=== PATIENT | female | born 1970 | race Hispanic/Latino ===

== ENCOUNTER 2017-07-08 05:17 | Emergency (ER) | payer OTHER ==
[~2017-07-08] VITALS: Ht 162.6 cm; Wt 101.3 kg
[~2017-07-08 05:17] MED LIST: ATARAX,VISTARIL50 MG PO; CLEOCIN300 MG PO; FARXIGA10 MG PO; GLIMEPIRIDE4 MG PO; KOMBIGLYZE XR1 EACH PO; LANTUS 10100 UNITS/ SC; LOSARTAN POTASS50 MG PO; METFORMIN HCL1000 MG PO; NORCO 5/3251 TABLET PO; PEPCID20 MG PO; PREDNISONE50 MG PO; ULTRAM50 MG PO; ZANTAC150 MG PO
[2017-07-08 06:38] LABS: APPEARANCE SL.HAZY ((CLEAR)); BILIRUBIN NEGATIVE; BLOOD SMALL; COLOR YELLOW ((YELLOW)); GLUCOSE (STRIP) NEGATIVE; KETONES 5; LEUKOCYTES NEGATIVE; NITRITE NEGATIVE; PROTEIN (STRIP) 30; SPECIFIC GRAVITY 1.018 (1.000-1.030); UROBILINOGEN 0.2 MG/DL (0.2-1.0)
[2017-07-08 06:42] LABS: BACTERIA 1+ /HPF; EPITHELIAL CELLS 2+ /HPF; MUCUS 1+ /LPF; UCUL ADDED? NO; WHITE BLOOD CELLS 0-5 /HPF (0-5)
[2017-07-08 06:49] LABS: HEMATOCRIT 38.9 % (36.0-46.0); HEMOGLOBIN 13.5 G/DL (11.9-15.5); MCH 31.4 PG (29.0-34.0); MCHC 34.7 G/DL (30.0-36.0); MCV 90.5 FL (83-99); PLATELET COUNT 393 K/uL (156-360); RBC DIS.WIDTH-CV 11.9 % (11.8-14.6); RBC DIS.WIDTH-SD 38.8 % (39-53); WHITE BLOOD COUNT 18.5 K/uL (4.1-10.2)
[2017-07-08 08:37] LABS: ALBUMIN 3.6 g/dL (3.2-4.8); CHLORIDE 105 mEq/L (99-109); POTASSIUM 3.9 mEq/L (3.7-5.4); SODIUM 136 mEq/L (136-147)
[2017-07-08 08:39] LABS: GLUCOSE 198 mg/dL (70-99); TOTAL PROTEIN 6.5 g/dL (6.4-8.3)
[2017-07-08 08:41] LABS: TOTAL BILIRUBIN 0.5 mg/dL (0.0-1.0)
[2017-07-08 08:43] LABS: ALKALINE PHOSPHATASE 74 IU/L (3-129); CREATININE 0.6 mg/dL (0.6-1.3); GFR ESTIMATE (CALCULATED) > 59 mL/min/
[2017-07-08 08:44] LABS: UREA NITROGEN (BUN) 14 mg/dL (9-23)
[2017-07-08 08:45] LABS: AST (GOT) 17 IU/L (2-34)
[2017-07-08 08:46] LABS: ALT (GPT) 23 IU/L (3-49)
[2017-07-08 08:51] LABS: QUANTITATIVE HCG < 4.0 MIU/ML
[2017-07-08] MEDS ORDERED: BENTYL10 MG PO (09:55)
[2017-07-08] MEDS ORDERED: ZOFRAN ODT4 MG PO (09:55)
[2017-07-08 10:25] VITALS: BP 111/74
== END 2017-07-08 10:25 | disposition home or self-care (01) ==
LOC: EME 05:17
PROVIDERS: Nurse Practitioner Family
DX: K42.9 Umbilical hernia without obstruction or gangrene (principal); R11.2 Nausea with vomiting, unspecified; I10 Essential (primary) hypertension; E11.9 Type 2 diabetes mellitus without complications; Z79.4 Long term (current) use of insulin; Z88.0 Allergy status to penicillin; Z88.2 Allergy status to sulfonamides; Z88.6 Allergy status to analgesic agent
CPT/HCPCS: 74176; 80053; 81003; 84702; 85027; 99281; 99285; J1200; J1885; J2405; J7030

== ENCOUNTER 2017-08-05 11:18 | Inpatient (IN) | payer OTHER ==
[~2017-08-05] VITALS: Ht 162.6 cm; Wt 100.4 kg
[~2017-08-05 11:18] MED LIST changes: +BENTYL10 MG PO; +ZOFRAN ODT4 MG PO
[2017-08-05 11:47] LABS: HEMATOCRIT 40.7 % (36.0-46.0); MCH 31.3 PG (29.0-34.0); MCHC 34.4 G/DL (30.0-36.0); MCV 91.1 FL (83-99); PLATELET COUNT 380 K/uL (156-360); RBC DIS.WIDTH-SD 40.2 % (39-53); RED BLOOD COUNT 4.47 M/uL (3.80-5.20); WHITE BLOOD COUNT 22.3 K/uL (4.1-10.2)
[2017-08-05 11:56] LABS: ALBUMIN 4.2 g/dL (3.2-4.8)
[2017-08-05 11:57] LABS: CHLORIDE 100 mEq/L (99-109); POTASSIUM 3.9 mEq/L (3.7-5.4); SODIUM 137 mEq/L (136-147)
[2017-08-05 11:59] LABS: GLUCOSE 127 mg/dL (70-99); TOTAL PROTEIN 8.2 g/dL (6.4-8.3)
[2017-08-05 12:01] LABS: TOTAL BILIRUBIN 0.7 mg/dL (0.0-1.0)
[2017-08-05 12:02] LABS: ALKALINE PHOSPHATASE 89 IU/L (3-129)
[2017-08-05 12:03] LABS: CREATININE 0.7 mg/dL (0.6-1.3); GFR ESTIMATE (CALCULATED) > 59 mL/min/
[2017-08-05 12:04] LABS: AST (GOT) 23 IU/L (2-34); UREA NITROGEN (BUN) 14 mg/dL (9-23)
[2017-08-05 12:06] LABS: ALT (GPT) 31 IU/L (3-49)
[2017-08-05 12:11] LABS: QUANTITATIVE HCG < 4.0 MIU/ML
[2017-08-05 13:33] LABS: APPEARANCE CLEAR ((CLEAR)); BILIRUBIN NEGATIVE; BLOOD NEGATIVE; COLOR YELLOW ((YELLOW)); GLUCOSE (STRIP) NEGATIVE; KETONES 20; LEUKOCYTES NEGATIVE; NITRITE NEGATIVE; PROTEIN (STRIP) NEGATIVE; UCUL ADDED? NO; UROBILINOGEN 0.2 MG/DL (0.2-1.0)
[2017-08-05 13:48] LABS: SPECIFIC GRAVITY 1.094 (1.000-1.030)
[2017-08-05] MEDS ORDERED: GLUCOPHAGE500 MG PO (13:58)
[2017-08-05] MEDS ORDERED: PRAVACHOL10 MG PO (13:59)
[2017-08-05] MEDS ORDERED: NOVOLOG PE100 UNITS/ SC (13:59)
[2017-08-05] MEDS ORDERED: BASAGLAR K100 UNIT/1 SC (14:00)
[2017-08-05] MEDS ORDERED: VITAMIN C500 M1 PO (14:00)
[2017-08-05] MEDS ORDERED: B-121000 MC2 PO (14:00)
[2017-08-05] MEDS ORDERED: CINNAMON500 MG PO (14:01)
[2017-08-05] MEDS ORDERED: VITAMIN B-6100 MG PO (14:01)
[2017-08-05] MEDS ORDERED: VITAMIN E400 UNIT PO (14:01)
[2017-08-05] MEDS ORDERED: TYLENOL EXTRA500 MG PO (14:02)
[2017-08-05] MEDS ORDERED: MAGNESIUM250 MG PO (14:02)
[2017-08-05 16:14] LABS: ABS NEUTROPHIL COUNT 18.1; EOSINOPHIL ABS CT 0.4; EOSINOPHILS 1.7 % (0-5.0)
[2017-08-05 20:30] VITALS: BP 139/77
[2017-08-05 23:52] VITALS: BP 109/70
[2017-08-06 04:12] VITALS: BP 121/61
[2017-08-06 07:15] LABS: CHLORIDE 105 MEQ/L (99-109); CREATININE 0.5 MG/DL (0.6-1.3); GFR ESTIMATE (CALCULATED) > 59 mL/min/; GLUCOSE 103 mg/dL (70-99); POTASSIUM 3.7 MEQ/L (3.7-5.4); SODIUM 139 MEQ/L (136-147); UREA NITROGEN (BUN) 10 mg/dL (9-23)
[2017-08-06 07:34] LABS: HEMATOCRIT 33.2 % (36.0-46.0); MCH 30.9 PG (29.0-34.0); MCHC 33.1 G/DL (30.0-36.0); MCV 93.3 FL (83-99); RBC DIS.WIDTH-CV 12.1 % (11.8-14.6); RBC DIS.WIDTH-SD 42.4 % (39-53); WHITE BLOOD COUNT 11.7 K/uL (4.1-10.2)
[2017-08-06 07:49] LABS: RED BLOOD COUNT 3.56 M/uL (3.80-5.20)
[2017-08-06 08:00] VITALS: BP 130/71
[2017-08-06 08:00] LABS: PLAT.SUFFICIENCY ADEQUATE; PLATELET COUNT 271 K/uL (156-360)
[2017-08-06 11:24] VITALS: BP 138/71
[2017-08-06 16:12] VITALS: BP 131/71
[2017-08-06 20:07] VITALS: BP 150/71
[2017-08-06 23:48] VITALS: BP 155/66
[2017-08-07 07:45] VITALS: BP 138/66
[2017-08-07 08:02] LABS: HEMOGLOBIN 12.1 G/DL (11.9-15.5); MCH 30.7 PG (29.0-34.0); MCHC 32.7 G/DL (30.0-36.0); MCV 93.9 FL (83-99); PLATELET COUNT 309 K/uL (156-360); RBC DIS.WIDTH-CV 11.9 % (11.8-14.6); RBC DIS.WIDTH-SD 41.6 % (39-53); RED BLOOD COUNT 3.94 M/uL (3.80-5.20); WHITE BLOOD COUNT 13.4 K/uL (4.1-10.2)
[2017-08-07 08:40] LABS: CHLORIDE 104 MEQ/L (99-109); CREATININE 0.5 MG/DL (0.6-1.3); GFR ESTIMATE (CALCULATED) > 59 mL/min/; GLUCOSE 191 mg/dL (70-99); POTASSIUM 4.4 MEQ/L (3.7-5.4); SODIUM 137 MEQ/L (136-147); UREA NITROGEN (BUN) 14 mg/dL (9-23)
[2017-08-07 11:16] VITALS: BP 145/69
[2017-08-07 16:06] VITALS: BP 162/76
[2017-08-07 23:32] VITALS: BP 134/65
[2017-08-08 07:12] VITALS: BP 157/71
[2017-08-08 10:11] LABS: HEMATOCRIT 35.2 % (36.0-46.0); HEMOGLOBIN 11.8 G/DL (11.9-15.5); MCH 31.4 PG (29.0-34.0); MCHC 33.5 G/DL (30.0-36.0); MCV 93.6 FL (83-99); PLATELET COUNT 315 K/uL (156-360); RBC DIS.WIDTH-CV 12.1 % (11.8-14.6); RED BLOOD COUNT 3.76 M/uL (3.80-5.20); WHITE BLOOD COUNT 8.1 K/uL (4.1-10.2)
[2017-08-08 10:35] LABS: CHLORIDE 102 MEQ/L (99-109); CREATININE 0.5 MG/DL (0.6-1.3); GFR ESTIMATE (CALCULATED) > 59 mL/min/; GLUCOSE 155 mg/dL (70-99); POTASSIUM 3.9 MEQ/L (3.7-5.4); SODIUM 136 MEQ/L (136-147); UREA NITROGEN (BUN) 9 mg/dL (9-23)
[2017-08-08 15:29] VITALS: BP 142/75
[2017-08-08 21:00] VITALS: BP 125/85
[2017-08-09 00:01] VITALS: BP 145/75
[2017-08-09 04:00] VITALS: BP 123/75
[2017-08-09 07:10] VITALS: BP 115/75
[2017-08-09 07:46] VITALS: BP 150/69
== END 2017-08-09 12:10 | disposition home or self-care (01) | DRG 390 ==
LOC: EME 11:18 → EDOF 14:52 → 2EASTP 14:52 → ENRESERV 14:54 → 2EASTP 19:13 → ENPENDDIS 08-06 → 2EASTP 08-09 12:10
PROVIDERS: Hospitalist; Internal Medicine
DX: K56.609 Unspecified intestinal obstruction, unspecified as to partial versus complete obstruction (principal); E86.0 Dehydration; D72.829 Elevated white blood cell count, unspecified; E11.9 Type 2 diabetes mellitus without complications; I10 Essential (primary) hypertension; K42.9 Umbilical hernia without obstruction or gangrene; E66.9 Obesity, unspecified; Z68.37 Body mass index [BMI] 37.0-37.9, adult
CPT/HCPCS: 74019; 74177; 80048; 80053; 81003; 82948; 84702; 85007; 85027; 99281; 99285; J1650; J2270; J2405; J2930; J7030

== ENCOUNTER 2017-09-08 03:41 | Inpatient (IN) | payer OTHER ==
[~2017-09-08] VITALS: Ht 162.6 cm; Wt 103.0 kg
[~2017-09-08 03:41] MED LIST changes: +B-121000 MC2 PO; +BASAGLAR K100 UNIT/1 SC; +CINNAMON500 MG PO; +GLUCOPHAGE500 MG PO; +MAGNESIUM250 MG PO; +NOVOLOG PE100 UNITS/ SC; +PRAVACHOL10 MG PO; +TYLENOL EXTRA500 MG PO; +VITAMIN B-6100 MG PO; +VITAMIN C500 M1 PO; +VITAMIN E400 UNIT PO
[2017-09-08 04:39] LABS: HEMATOCRIT 41.1 % (36.0-46.0); HEMOGLOBIN 14.2 G/DL (11.9-15.5); MCH 31.2 PG (29.0-34.0); MCHC 34.5 G/DL (30.0-36.0); MCV 90.3 FL (83-99); PLATELET COUNT 383 K/uL (156-360); RBC DIS.WIDTH-CV 11.8 % (11.8-14.6); RBC DIS.WIDTH-SD 38.9 % (39-53); RED BLOOD COUNT 4.55 M/uL (3.80-5.20); WHITE BLOOD COUNT 22.8 K/uL (4.1-10.2)
[2017-09-08 04:49] LABS: ALBUMIN 4.1 g/dL (3.2-4.8); CHLORIDE 103 mEq/L (99-109); POTASSIUM 4.4 mEq/L (3.7-5.4); SODIUM 137 mEq/L (136-147)
[2017-09-08 04:51] LABS: GLUCOSE 202 mg/dL (70-99); TOTAL PROTEIN 8.2 g/dL (6.4-8.3)
[2017-09-08 04:53] LABS: TOTAL BILIRUBIN 0.7 mg/dL (0.0-1.0)
[2017-09-08 04:55] LABS: ALKALINE PHOSPHATASE 97 IU/L (3-129); CREATININE 0.7 mg/dL (0.6-1.3); GFR ESTIMATE (CALCULATED) > 59 mL/min/
[2017-09-08 04:56] LABS: UREA NITROGEN (BUN) 16 mg/dL (9-23)
[2017-09-08 04:57] LABS: AST (GOT) 17 IU/L (2-34)
[2017-09-08 04:58] LABS: ALT (GPT) 30 IU/L (3-49)
[2017-09-08 05:05] LABS: QUANTITATIVE HCG < 4.0 MIU/ML
[2017-09-08 05:10] LABS: APPEARANCE CLOUDY ((CLEAR)); BILIRUBIN NEGATIVE; BLOOD NEGATIVE; COLOR AMBER ((YELLOW)); GLUCOSE (STRIP) NEGATIVE; KETONES 5; LEUKOCYTES TRACE; NITRITE NEGATIVE; PROTEIN (STRIP) 100; SPECIFIC GRAVITY 1.038 (1.000-1.030); UROBILINOGEN 0.2 MG/DL (0.2-1.0)
[2017-09-08 05:49] LABS: BACTERIA 3+ /HPF; EPITHELIAL CELLS 2+ /HPF; MUCUS 1+ /LPF; RED BLOOD CELLS NONE SEEN /HPF (0-5); UCUL ADDED? YES; WHITE BLOOD CELLS 0-5 /HPF (0-5)
[2017-09-08 05:50] LABS: AMORPHOUS URATES CRYSTALS 2+; CALCIUM OXALATE CRYSTALS 2+ /HPF
[2017-09-08] MEDS ORDERED: NOVOLOG 10100 UNITS/ SC (08:14)
[2017-09-08] MEDS ORDERED: BENTYL10 MG PO (08:21)
[2017-09-08 10:33] VITALS: BP 112/61
[2017-09-08 11:12] LABS: HEMOGLOBIN A1c (GLYCOHEMOGLOB) 6.3 % (Below 5.7)
[2017-09-08 16:04] VITALS: BP 120/62
[2017-09-08 20:33] VITALS: BP 117/66
[2017-09-08 23:49] VITALS: BP 127/64
[2017-09-09 03:33] VITALS: BP 110/59
[2017-09-09 06:02] LABS: HEMATOCRIT 36.6 % (36.0-46.0); HEMOGLOBIN 12.3 G/DL (11.9-15.5); MCH 30.9 PG (29.0-34.0); MCHC 33.6 G/DL (30.0-36.0); PLATELET COUNT 349 K/uL (156-360); RBC DIS.WIDTH-CV 11.9 % (11.8-14.6); RBC DIS.WIDTH-SD 40.8 % (39-53); RED BLOOD COUNT 3.98 M/uL (3.80-5.20); WHITE BLOOD COUNT 21.1 K/uL (4.1-10.2)
[2017-09-09 06:15] LABS: ALBUMIN 3.4 G/DL (3.2-4.8); ALKALINE PHOSPHATASE 70 IU/L (3-129); ALT (GPT) 18 IU/L (3-49); AST (GOT) 11 IU/L (2-34); CHLORIDE 107 MEQ/L (99-109); CREATININE 0.6 MG/DL (0.6-1.3); GFR ESTIMATE (CALCULATED) > 59 mL/min/; GLUCOSE 186 mg/dL (70-99); POTASSIUM 4.5 MEQ/L (3.7-5.4); SODIUM 138 MEQ/L (136-147); TOTAL BILIRUBIN 0.6 MG/DL (0.0-1.0); TOTAL PROTEIN 6.3 G/DL (6.4-8.3); UREA NITROGEN (BUN) 13 mg/dL (9-23)
[2017-09-09 06:23] LABS: INTER. NORMALIZED RATIO 1.2
[2017-09-09 07:20] VITALS: BP 129/62
[2017-09-09 11:41] VITALS: BP 121/68
[2017-09-09 15:46] VITALS: BP 123/70
[2017-09-09 23:36] VITALS: BP 119/59
[2017-09-10 06:52] LABS: HEMATOCRIT 33.6 % (36.0-46.0); HEMOGLOBIN 11.1 G/DL (11.9-15.5); MCH 30.5 PG (29.0-34.0); MCV 92.3 FL (83-99); PLATELET COUNT 320 K/uL (156-360); RBC DIS.WIDTH-CV 12.1 % (11.8-14.6); RBC DIS.WIDTH-SD 41.1 % (39-53); RED BLOOD COUNT 3.64 M/uL (3.80-5.20); WHITE BLOOD COUNT 14.3 K/uL (4.1-10.2)
[2017-09-10 07:43] VITALS: BP 136/75
[2017-09-10 15:00] VITALS: BP 135/66
[2017-09-10 23:11] VITALS: BP 149/71
[2017-09-11 06:17] LABS: HEMATOCRIT 32.5 % (36.0-46.0); HEMOGLOBIN 10.7 G/DL (11.9-15.5); MCH 30.1 PG (29.0-34.0); MCHC 32.9 G/DL (30.0-36.0); MCV 91.3 FL (83-99); PLATELET COUNT 348 K/uL (156-360); RBC DIS.WIDTH-CV 11.7 % (11.8-14.6); RBC DIS.WIDTH-SD 39.7 % (39-53); RED BLOOD COUNT 3.56 M/uL (3.80-5.20)
[2017-09-11 09:05] VITALS: BP 154/68
[2017-09-12 00:01] VITALS: BP 120/65
[2017-09-12 06:51] LABS: HEMATOCRIT 33.7 % (36.0-46.0); HEMOGLOBIN 10.9 G/DL (11.9-15.5); MCH 29.9 PG (29.0-34.0); MCHC 32.3 G/DL (30.0-36.0); MCV 92.3 FL (83-99); PLATELET COUNT 334 K/uL (156-360); RBC DIS.WIDTH-CV 11.9 % (11.8-14.6); RBC DIS.WIDTH-SD 40.4 % (39-53); RED BLOOD COUNT 3.65 M/uL (3.80-5.20); WHITE BLOOD COUNT 11.4 K/uL (4.1-10.2)
[2017-09-12 07:07] LABS: C-REACTIVE PROTEIN 10.8 MG/L (0-10); CHLORIDE 105 MEQ/L (99-109); CREATININE 0.6 MG/DL (0.6-1.3); GFR ESTIMATE (CALCULATED) > 59 mL/min/; GLUCOSE 145 mg/dL (70-99); POTASSIUM 4.1 MEQ/L (3.7-5.4); SODIUM 139 MEQ/L (136-147); UREA NITROGEN (BUN) 11 mg/dL (9-23)
[2017-09-12 07:52] VITALS: BP 131/66
[2017-09-12 11:10] VITALS: BP 133/77
[2017-09-12 15:30] VITALS: BP 141/80
[2017-09-12 23:53] VITALS: BP 106/59
[2017-09-13 08:00] VITALS: BP 127/63
[2017-09-13] MEDS ORDERED: PREDNISONE5 MG PO (10:40)
[2017-09-13] MEDS ORDERED: DELZICOL400 M1 PO (10:40)
[2017-09-13 14:05] LABS: Neutrophil Cytoplasmic Aby Negative (Negative)
== END 2017-09-13 12:42 | disposition home or self-care (01) | DRG 386 ==
LOC: EME 03:41 → EDOF 07:33 → 5EAST 07:33 → ENRESERV 07:39 → 5EAST 10:08
PROVIDERS: Internal Medicine; Specialist
PROC: 0DBB8ZX Excision of Ileum, Via Natural or Artificial Opening Endoscopic, Diagnostic (ICD-10-PCS; principal; 2017-09-11)
DX: K50.00 Crohn's disease of small intestine without complications (principal); N30.00 Acute cystitis without hematuria; I10 Essential (primary) hypertension; E11.9 Type 2 diabetes mellitus without complications; E78.5 Hyperlipidemia, unspecified; Z79.4 Long term (current) use of insulin; Z82.3 Family history of stroke; Z82.49 Family history of ischemic heart disease and other diseases of the circulatory system; Z83.3 Family history of diabetes mellitus
CPT/HCPCS: 71045; 74019; 74177; 80048; 80053; 81003; 82948; 83036; 83605; 84702; 85027; 85610; 86021 90; 86140; 86671 90; 87040; 87086; 88305; 99281; 99285; C9113; J1650; J1815; J1956; J2270; J2405; J2930; J7030; J7512; S0030

== ENCOUNTER 2017-09-25 13:04 | Emergency (ER) | payer OTHER ==
[~2017-09-25] VITALS: Ht 162.6 cm; Wt 99.0 kg
[~2017-09-25 13:04] MED LIST changes: +DELZICOL400 M1 PO; +NOVOLOG 10100 UNITS/ SC; +PREDNISONE5 MG PO
[2017-09-25 13:50] LABS: HEMOGLOBIN 12.6 G/DL (11.9-15.5); MCH 31.3 PG (29.0-34.0); MCHC 34.1 G/DL (30.0-36.0); MCV 91.8 FL (83-99); PLATELET COUNT 370 K/uL (156-360); RBC DIS.WIDTH-CV 12.5 % (11.8-14.6); RBC DIS.WIDTH-SD 41.4 % (39-53); RED BLOOD COUNT 4.03 M/uL (3.80-5.20); WHITE BLOOD COUNT 13.8 K/uL (4.1-10.2)
[2017-09-25 13:58] LABS: ALBUMIN 3.9 g/dL (3.2-4.8)
[2017-09-25 13:59] LABS: CHLORIDE 101 mEq/L (99-109); POTASSIUM 3.9 mEq/L (3.7-5.4); SODIUM 141 mEq/L (136-147)
[2017-09-25 14:01] LABS: GLUCOSE 164 mg/dL (70-99); TOTAL PROTEIN 7.2 g/dL (6.4-8.3)
[2017-09-25 14:03] LABS: TOTAL BILIRUBIN 0.5 mg/dL (0.0-1.0)
[2017-09-25 14:04] LABS: ALKALINE PHOSPHATASE 83 IU/L (3-129)
[2017-09-25 14:05] LABS: CREATININE 0.7 mg/dL (0.6-1.3); GFR ESTIMATE (CALCULATED) > 59 mL/min/
[2017-09-25 14:06] LABS: AST (GOT) 19 IU/L (2-34); UREA NITROGEN (BUN) 12 mg/dL (9-23)
[2017-09-25 14:07] LABS: ALT (GPT) 33 IU/L (3-49)
[2017-09-25 14:13] LABS: QUANTITATIVE HCG < 4.0 MIU/ML
[2017-09-25 16:23] LABS: APPEARANCE CLEAR ((CLEAR)); BILIRUBIN NEGATIVE; BLOOD NEGATIVE; COLOR STRAW ((YELLOW)); GLUCOSE (STRIP) NEGATIVE; KETONES NEGATIVE; LEUKOCYTES NEGATIVE; NITRITE NEGATIVE; PROTEIN (STRIP) NEGATIVE; SPECIFIC GRAVITY 1.008 (1.000-1.030); UCUL ADDED? NO; UROBILINOGEN 0.2 MG/DL (0.2-1.0)
[2017-09-25] MEDS ORDERED: KEFLEX500 MG PO (16:45)
[2017-09-25] MEDS ORDERED: MIRALAX255 GM PO (16:45)
[2017-09-25 17:02] VITALS: BP 162/81
== END 2017-09-25 17:02 | disposition home or self-care (01) ==
LOC: EME 13:04
DX: K59.00 Constipation, unspecified (principal); L03.311 Cellulitis of abdominal wall; E11.9 Type 2 diabetes mellitus without complications; I10 Essential (primary) hypertension; K50.90 Crohn's disease, unspecified, without complications; Z79.4 Long term (current) use of insulin; Z87.19 Personal history of other diseases of the digestive system; Z88.6 Allergy status to analgesic agent; Z88.2 Allergy status to sulfonamides; Z88.0 Allergy status to penicillin
CPT/HCPCS: 74022; 80053; 81003; 84702; 85027; 99281; 99284

== ENCOUNTER 2017-10-05 06:31 | Emergency (ER) | payer OTHER ==
[~2017-10-05] VITALS: Ht 162.6 cm; Wt 99.7 kg
[~2017-10-05 06:31] MED LIST changes: +KEFLEX500 MG PO; +MIRALAX255 GM PO
[2017-10-05 07:10] LABS: APPEARANCE SL.HAZY ((CLEAR)); BILIRUBIN NEGATIVE; BLOOD NEGATIVE; COLOR YELLOW ((YELLOW)); GLUCOSE (STRIP) >=500; KETONES 20; LEUKOCYTES NEGATIVE; NITRITE NEGATIVE; PROTEIN (STRIP) 30; SPECIFIC GRAVITY 1.024 (1.000-1.030); UROBILINOGEN 0.2 MG/DL (0.2-1.0)
[2017-10-05 07:16] LABS: HEMATOCRIT 40.3 % (36.0-46.0); HEMOGLOBIN 13.9 G/DL (11.9-15.5); MCH 31.4 PG (29.0-34.0); MCHC 34.5 G/DL (30.0-36.0); MCV 91.2 FL (83-99); PLATELET COUNT 311 K/uL (156-360); RBC DIS.WIDTH-CV 12.6 % (11.8-14.6); RBC DIS.WIDTH-SD 42.1 % (39-53); RED BLOOD COUNT 4.42 M/uL (3.80-5.20)
[2017-10-05 07:17] LABS: BACTERIA NONE SEEN /HPF; EPITHELIAL CELLS 1+ /HPF; MUCUS TRACE /LPF; RED BLOOD CELLS 0-5 /HPF (0-5); UCUL ADDED? NO; WHITE BLOOD CELLS 0-5 /HPF (0-5)
[2017-10-05 07:43] LABS: CHLORIDE 97 MEQ/L (99-109); POTASSIUM 3.9 MEQ/L (3.7-5.4); SODIUM 132 MEQ/L (136-147); TOTAL BILIRUBIN 0.8 MG/DL (0.0-1.0)
[2017-10-05 07:48] LABS: ALKALINE PHOSPHATASE 69 IU/L (3-129); ALT (GPT) 23 IU/L (3-49); AST (GOT) 14 IU/L (2-34); CREATININE 0.6 MG/DL (0.6-1.3); GFR ESTIMATE (CALCULATED) > 59 mL/min/; GLUCOSE 289 mg/dL (70-99); TOTAL PROTEIN 7.4 G/DL (6.4-8.3); UREA NITROGEN (BUN) 19 mg/dL (9-23)
[2017-10-05 07:50] LABS: QUANTITATIVE HCG < 4.0 MIU/ML
[2017-10-05] MEDS ORDERED: PERCOCET 5/31 TABLET PO (10:14)
[2017-10-05 10:36] VITALS: BP 125/83
== END 2017-10-05 10:39 | disposition home or self-care (01) ==
LOC: EME 06:31
DX: K50.90 Crohn's disease, unspecified, without complications (principal); E11.9 Type 2 diabetes mellitus without complications; I10 Essential (primary) hypertension; Z88.0 Allergy status to penicillin; Z88.2 Allergy status to sulfonamides; Z88.6 Allergy status to analgesic agent; Z79.4 Long term (current) use of insulin
CPT/HCPCS: 74177; 80053; 81003; 84702; 85027; 99281; 99284; J2405; J3010; J7030

== ENCOUNTER 2017-10-25 13:11 | Emergency (ER) | payer OTHER ==
[~2017-10-25] VITALS: Ht 162.6 cm; Wt 100.1 kg
[~2017-10-25 13:11] MED LIST changes: +PERCOCET 5/31 TABLET PO
[2017-10-25] MEDS ORDERED: FIORICET 50-301 EAC1 PO (17:31)
[2017-10-25 17:39] VITALS: BP 125/75
== END 2017-10-25 17:39 | disposition home or self-care (01) ==
LOC: EME 13:11 → RME 13:11
DX: R51 Headache (principal); I10 Essential (primary) hypertension; E11.9 Type 2 diabetes mellitus without complications; Z79.4 Long term (current) use of insulin; Z79.84 Long term (current) use of oral hypoglycemic drugs; K50.90 Crohn's disease, unspecified, without complications; G43.909 Migraine, unspecified, not intractable, without status migrainosus; Z88.6 Allergy status to analgesic agent; Z88.2 Allergy status to sulfonamides; Z88.0 Allergy status to penicillin
CPT/HCPCS: 70450; 99281; 99285; J0780; J7030

== ENCOUNTER 2017-10-27 22:04 | Emergency (ER) | payer OTHER ==
[~2017-10-27] VITALS: Ht 162.6 cm; Wt 100.0 kg
[~2017-10-27 22:04] MED LIST changes: +FIORICET 50-301 EAC1 PO
[2017-10-28 02:23] VITALS: BP 121/69
== END 2017-10-28 02:29 | disposition home or self-care (01) ==
LOC: EME 22:04
DX: T42.6X1A Poisoning by other antiepileptic and sedative-hypnotic drugs, accidental (unintentional), initial encounter (principal); E11.9 Type 2 diabetes mellitus without complications; Z79.84 Long term (current) use of oral hypoglycemic drugs; Z79.4 Long term (current) use of insulin; I10 Essential (primary) hypertension; K50.90 Crohn's disease, unspecified, without complications; G43.909 Migraine, unspecified, not intractable, without status migrainosus; Z88.6 Allergy status to analgesic agent; Z88.2 Allergy status to sulfonamides; Z88.0 Allergy status to penicillin
CPT/HCPCS: 99281; 99284

== ENCOUNTER 2017-11-02 00:52 | Inpatient (IN) | payer OTHER ==
[~2017-11-02] VITALS: Ht 162.6 cm; Wt 99.0 kg
[~2017-11-02 00:52] MED LIST changes: -VITAMIN B-6100 MG PO; +VITAMIN B-625 MG PO; +VITAMIN E100 UNIT PO; -VITAMIN E400 UNIT PO
[2017-11-02 01:16] LABS: HEMATOCRIT 38.9 % (36.0-46.0); HEMOGLOBIN 13.5 G/DL (11.9-15.5); MCH 31.2 PG (29.0-34.0); MCHC 34.7 G/DL (30.0-36.0); MCV 89.8 FL (83-99); PLATELET COUNT 354 K/uL (156-360); RBC DIS.WIDTH-CV 12.8 % (11.8-14.6); RBC DIS.WIDTH-SD 42.1 % (39-53); RED BLOOD COUNT 4.33 M/uL (3.80-5.20); WHITE BLOOD COUNT 15.9 K/uL (4.1-10.2)
[2017-11-02 01:24] LABS: CHLORIDE 101 mEq/L (99-109); POTASSIUM 3.7 mEq/L (3.7-5.4); SODIUM 137 mEq/L (136-147)
[2017-11-02 01:26] LABS: GLUCOSE 222 mg/dL (70-99)
[2017-11-02 01:27] LABS: TOTAL PROTEIN 7.6 g/dL (6.4-8.3)
[2017-11-02 01:28] LABS: TOTAL BILIRUBIN 0.9 mg/dL (0.0-1.0)
[2017-11-02 01:30] LABS: ALKALINE PHOSPHATASE 73 IU/L (3-129); CREATININE 0.7 mg/dL (0.6-1.3); GFR ESTIMATE (CALCULATED) > 59 mL/min/
[2017-11-02 01:31] LABS: UREA NITROGEN (BUN) 14 mg/dL (9-23)
[2017-11-02 01:32] LABS: AST (GOT) 15 IU/L (2-34)
[2017-11-02 01:33] LABS: ALT (GPT) 21 IU/L (3-49)
[2017-11-02 01:34] LABS: LIPASE 11 U/L (1.0-51.0)
[2017-11-02 01:42] LABS: QUANTITATIVE HCG < 4.0 MIU/ML
[2017-11-02 09:11] VITALS: BP 124/70
[2017-11-02 15:58] VITALS: BP 115/62
[2017-11-02 19:22] VITALS: BP 132/68
[2017-11-02 23:21] VITALS: BP 113/58
[2017-11-03 03:15] VITALS: BP 128/64
[2017-11-03 05:52] LABS: HEMATOCRIT 34.3 % (36.0-46.0); MCH 30.5 PG (29.0-34.0); MCHC 32.9 G/DL (30.0-36.0); MCV 92.5 FL (83-99); PLATELET COUNT 310 K/uL (156-360); RBC DIS.WIDTH-CV 13.1 % (11.8-14.6); RBC DIS.WIDTH-SD 44.1 % (39-53); RED BLOOD COUNT 3.71 M/uL (3.80-5.20); WHITE BLOOD COUNT 15.9 K/uL (4.1-10.2)
[2017-11-03 06:00] LABS: HEMOGLOBIN 11.3 G/DL (11.9-15.5)
[2017-11-03 06:07] LABS: CHLORIDE 103 MEQ/L (99-109); CREATININE 0.5 MG/DL (0.6-1.3); GFR ESTIMATE (CALCULATED) > 59 mL/min/; GLUCOSE 209 mg/dL (70-99); POTASSIUM 4.1 MEQ/L (3.7-5.4); SODIUM 136 MEQ/L (136-147); UREA NITROGEN (BUN) 13 mg/dL (9-23)
[2017-11-03 07:47] VITALS: BP 110/58
[2017-11-03 14:58] VITALS: BP 123/68
[2017-11-03 21:44] VITALS: BP 139/67
[2017-11-04 00:39] VITALS: BP 135/72
[2017-11-04 03:46] VITALS: BP 149/69
[2017-11-04 06:32] LABS: CREATININE 0.5 MG/DL (0.6-1.3); GFR ESTIMATE (CALCULATED) > 59 mL/min/; UREA NITROGEN (BUN) 15 mg/dL (9-23)
[2017-11-04 08:16] VITALS: BP 146/79
[2017-11-04 11:57] VITALS: BP 129/75
[2017-11-04] MEDS ORDERED: DELTASONE20 M1 PO (12:27)
[2017-11-04] MEDS ORDERED: COMPLETE MULTI1 EAC1 PO (12:29)
[2017-11-04] MEDS ORDERED: PRILOSEC20 MG PO (12:29)
[2017-11-04] MEDS ORDERED: PENTASA500 MG PO (12:30)
[2017-11-04] MEDS ORDERED: TYLENOL325 M2 PO (12:30)
[2017-11-04 15:00] VITALS: BP 147/84
[2017-11-04 20:25] VITALS: BP 140/72
[2017-11-05] VITALS: BP 138/70
[2017-11-05 04:33] VITALS: BP 136/70
[2017-11-05 07:26] VITALS: BP 146/81
[2017-11-05] MEDS ORDERED: ENDOCET 5-3251 EACH PO (11:56)
[2017-11-05] MEDS ORDERED: PREDNISONE20 MG PO (12:47)
== END 2017-11-05 14:58 | disposition home or self-care (01) | DRG 354 ==
LOC: EME 00:52 → SDC 05:24 → EME 05:24 → ENRESERV 07:02 → 5EAST 07:03 → 2SOUTH 07:03 → ENRESERV 08:14 → 5EAST 08:43 → ENPENDDIS 11-05 → 5EAST 11-05 14:58
PROVIDERS: Physician Assistant; Surgery
PROC: 0WUF0JZ Supplement Abdominal Wall with Synthetic Substitute, Open Approach (ICD-10-PCS; principal; 2017-11-02)
DX: K43.6 Other and unspecified ventral hernia with obstruction, without gangrene (principal); K50.00 Crohn's disease of small intestine without complications; I10 Essential (primary) hypertension; E78.5 Hyperlipidemia, unspecified; E11.9 Type 2 diabetes mellitus without complications; Z82.3 Family history of stroke; Z79.4 Long term (current) use of insulin; R18.8 Other ascites
CPT/HCPCS: 74177; 80048; 80053; 81003; 82565; 82948; 83605; 83690; 84520; 84702; 85027; 87040; 94799; 99281; 99285; J0131; J0744; J1170; J1200; J1650; J1815; J2250; J2405; J2765; J2920; J3010; J7030; J7120; J7512; S0020; S0028